=== PATIENT | female | born 1975 ===

== ENCOUNTER 2025-02-22 06:12 | Day surgery (SDC) | payer BC, SELFPAY ==
[2025-02-14 09:15] LABS: Hematocrit 39.7 % (37.0-47.0); Hemoglobin 13.2 g/dL (12.0-16.0); Mean Corp Hgb Conc. 33.2 g/dL (33.0-37.0); Mean Corpuscular Volume 81.5 fL (81.0-99.0); Nucleated Red Blood Cells % 0 %; Platelet Count 175 10^3/uL (130-400); Red Cell Dist. Width 15.4 % (11.5-14.5)
[2025-02-14 09:39] LABS: Blood Urea Nitrogen 11 mg/dl (7-17); Calcium 8.0 mg/dl (8.4-10.2); Carbon Dioxide 27 mmol/L (22-30); Chloride 100 mmol/L (98-107); Glucose 88 mg/dl (70-99); Potassium 4.1 mmol/L (3.5-5.1); Sodium 133 mmol/L (135-145); eGFR > 60.00
[2025-02-14 13:46] VITALS: BMI 31.6
[2025-02-22] VITALS (11 sets, daily range): BP systolic 131–164; BP diastolic 84–98; BMI 31.6
[2025-02-22] MEDS: NORMOSOL-R/PLASMALYTE-A 1000 IV (10:28)
[2025-02-22] MEDS: DILAUDID 0.5 MG IV (14:50)
== END 2025-02-22 16:25 | disposition home or self-care (01) ==
LOC: SDS 06:12
PROVIDERS: ATTENDING PHYSICIAN Obstetrics & Gynecology; FAMILY PHYSICIAN Internal Medicine
DX: N72 Inflammatory disease of cervix uteri (principal); N95.0 Postmenopausal bleeding; Z79.890 Hormone replacement therapy
CPT/HCPCS: 58558; 36415; 80048; 85025; 86850; 86900; 86901; 88305